=== PATIENT | female | born 1950 | race Caucasian/White ===

== ENCOUNTER 2018-12-16 12:58 | Outpatient (CLI) | payer MEDICARE, BC ==
--- NOTE | 2018-12-16 15:43 | RAD ---
RIGHT HIP 2 VIEWS: Date: 12/16/18 HISTORY: Right hip pain. FINDINGS/IMPRESSION: Degenerative changes are present. No fracture, dislocation, or bony destruction is identified. POS: VARUN
--- NOTE | 2018-12-16 15:48 | CT ---
LOW DOSE CT SCAN CHEST FOR LUNG CANCER SCREENING: Date: 12/16/18 HISTORY: 50 year history of smoking cigarettes. Patient quit 2 months ago. FINDINGS: No noncalcified parenchymal nodules are seen. There is a small calcified granuloma in the left lower lobe. No pleural or pericardial effusions are seen. Vascular calcifications are noted without evidenc e of aneurysmal dilatation of the thoracic aorta. There are degenerative changes in the spine. IMPRESSION: Lung-RADS Category 1 (Negative, less than 1% chance of malignancy). RECOMMENDATION: Continue annual screening with LDCT. POS: VARUN
== END 2018-12-16 12:59 | disposition home or self-care (01) ==
LOC: CT 12:58
PROVIDERS: ATTEND Internal Medicine
DX: M25.551 Pain in right hip (principal); M16.11 Unilateral primary osteoarthritis, right hip; Z87.891 Personal history of nicotine dependence
CPT/HCPCS: 73502; G0297

== ENCOUNTER 2019-08-28 13:20 | Outpatient (CLI) | payer MEDICARE, BC ==
--- NOTE | 2019-08-28 13:56 | MMO ---
Bilateral MAMMO Bilat Screen [facility]. CLINICAL HISTORY: Patient is 68 years old and is seen for screening. The patient has no family history of breast cancer. The patient has no personal history of cancer. VIEWS: The views performed were: bilateral craniocaudal with tomosynthesis and bilateral mediolateral oblique with tomosynthesis. FILMS COMPARED: The present examination has been compared to prior imaging studies performed at [facility] on 11/23/2009, 11/24/2010, 11/13/2013 and 11/20/2014. This study has been interpreted with the assistance of computer-aided detection. MAMMOGRAM FINDINGS: There are scattered fibroglandular densities. There are no suspicious masses, suspicious calcifications, or new areas of architectural distortion. IMPRESSION: THERE IS NO MAMMOGRAPHIC EVIDENCE OF MALIGNANCY. A ROUTINE FOLLOW-UP MAMMOGRAM IN 1 YEAR IS RECOMMENDED. THE RESULTS OF THIS EXAM WERE SENT TO THE PATIENT. ACR BI-RADS Category 1 - Negative MAMMOGRAPHY NOTE: 1. A negative mammogram report should not delay a biopsy if a dominant of clinically suspicious mass is present. 2. Approximately 10% to 15% of breast cancers are not detected by mammography. 3. Adenosis and dense breasts may obscure an underlying neoplasm. Reported by: RUSTY SOTELO MD Electonically Signed: [id number]
--- NOTE | 2019-08-28 14:38 | BD ---
BONE DENSITOMETRY USING DEXA: HISTORY: Postmenopausal screening for osteoporosis, bone density and structure. FINDINGS: Lumbar Spine: BMD (g/cm2) L1 0.799 T-Score: -7.7 Z-Score: 0.1 L2 0.870 T-Score: -1.4 Z-Score: 0.6 L3 0.882 T-Score: -1.8 Z-Score: 0.3 L4 0.947 T-Score: -1.0 Z-Score: 1.2 L1-L4 0.877 T-Score: -1.5 Z-Score: 0.6 Femoral Neck: 0.646 T-Score: -1.8 Z-Score: 0.0 Total Femur: 0.825 T-Score: -1.0 Z-Score: 0.5 There has been interval reduction of 14.1% in the BMD of the lumbar spine and an improvement of 1.4% in the BMD of the proximal femur since 11/23/1997. The 10-year fracture risk for a major osteoporotic fracture is 12% and for a hip fracture is 3.2%. Impression: Osteopenia. POS: VARUN
== END 2019-08-28 13:21 | disposition home or self-care (01) ==
LOC: BICMAMMO 13:20
PROVIDERS: ATTEND Internal Medicine
DX: Z12.31 Encounter for screening mammogram for malignant neoplasm of breast (principal); M85.89 Other specified disorders of bone density and structure, multiple sites
CPT/HCPCS: 77063; 77067; 77080

== ENCOUNTER 2022-01-10 14:17 | Inpatient (IN) | payer OTHER, MEDICARE ==
[2022-01-10] MEDS ORDERED: Fentanyl 100 MCG/2 ML VIAL ONE (14:22)
[2022-01-10] MEDS ORDERED: Ondansetron PF 4 MG/2 ML Vial ONE ×2 (14:40→16:05)
[2022-01-10 14:48] LABS: #Basophils 0.1 thou/uL (0.0-0.2); #Eosinphils 0.3 thou/uL (0.0-0.7); #Lymphocytes 1.9 thou/uL (1.20-3.40); #Monocytes 0.7 thou/uL (0.11-0.59); #Neutrophils 8.1 thou/uL (1.40-6.50); %Basophils 0.6 % (0.0-1.0); %Eosinophils 2.6 % (0.0-10.0); %Lymphocytes 17.4 % (21.0-51.0); %Monocytes 6.6 % (0.0-10.0); %Neutrophils 72.7 % (42.0-75.0); Hemoglobin 14.3 g/dL (12.0-16.0); Mean Corpuscular HGB CONC 32.3 g/dL (32.0-36.0); Mean Corpuscular Hemoglobin 29.1 pg (27.0-31.0); Mean Corpuscular Volume 90.1 fL (78.0-98.0); Mean Platelet Volume 7.7 fL (7.4-10.4); Platelet Count 455 thou/uL (130-400); RBC Distribution Width 13.3 % (11.5-14.5); Red Blood Cell (RBC) Count 4.93 mill/uL (4.20-5.40); White Blood Cell (WBC) Count 11.1 thou/uL (4.8-10.8)
[2022-01-10 15:03] LABS: ALT (SGPT) 18 U/L (8-55); AST (SGOT) 23 U/L (5-34); Albumin 4.4 g/dL (3.4-4.8); Alkaline Phosphatase 114 U/L (40-110); Anion Gap 17 mmol/L (10-20); BUN (Urea Nitrogen) 20 mg/dL (9.8-20.1); Bilirubin, Total 0.3 mg/dL (0.2-1.2); Calc. Creatinine Clearance 0 mL/min (70-130); Calcium 9.2 mg/dL (7.8-10.44); Carbon Dioxide 22 mmol/L (23-31); Chloride 106 mmol/L (98-107); Globulin 2.7 g/dL (2.4-3.5); Glucose 151 mg/dL (83-110); Lipase 30 U/L (8-78); Potassium 4.6 mmol/L (3.5-5.1); Protein, Total 7.1 g/dL (5.8-8.1); Sodium 140 mmol/L (136-145)
[2022-01-10] MEDS ORDERED: hydrALAZINE 20 MG/ML VIAL SLOW IVP PRN (15:54)
[2022-01-10] MEDS ORDERED: Acetaminophen 325 MG TAB PO PRN (15:54)
[2022-01-10] MEDS ORDERED: Morphine 2 MG/ML VIAL SLOW IVP PRN (15:54)
[2022-01-10] MEDS ORDERED: Promethazine HCl 25 MG/ML VIAL IM PRN (15:54)
[2022-01-10] MEDS ORDERED: Lorazepam 2 MG/ML VIAL SLOW IVP PRN (15:54)
[2022-01-10] MEDS ORDERED: Ondansetron PF 4 MG/2 ML Vial IVP PRN (15:54)
[2022-01-10] MEDS ORDERED: Morphine 4 MG/ML VIAL ONE (15:56)
[2022-01-10] MEDS ORDERED: traMADol HCl 50 MG TAB PO PRN (15:57)
[2022-01-10] MEDS ORDERED: Rib Fracture Protocol IV SCH (16:00)
[2022-01-10] MEDS ORDERED: Ibuprofen 600 MG TAB PO SCH ×2 (16:00→18:00)
[2022-01-10] MEDS ORDERED: Melatonin 3 MG TAB PO PRN (16:00)
[2022-01-10] MEDS ORDERED: Promethazine HCl 25 MG/ML VIAL ONE (16:24)
[2022-01-10] MEDS ORDERED: Albuterol 200 PUFF (6.7GM INHALER) INH PRN (16:45)
[2022-01-10 17:34] VITALS: BMI 26.1
[2022-01-10] MEDS ORDERED: Morphine 4 MG/ML VIAL SLOW IVP PRN (18:02)
[2022-01-10] MEDS ORDERED: Loratadine 10 MG TAB PO PRN (18:03)
[2022-01-10] MEDS: Ketorolac Tromethamine 30 MG/ML VIAL IVP SCH (18:27)
[2022-01-10] MEDS: traMADol HCl 50 MG TAB PO SCH (18:28)
[2022-01-10] MEDS: Sodium Chloride 0.9% 1,000 ML IV SCH (18:29)
[2022-01-10] MEDS: Acetaminophen 500 MG TAB PO SCH (18:29)
[2022-01-10] MEDS: Mometasone 200 MCG/Formoterol 5 MCG 120 PUFF INHALER INH SCH (20:07)
[2022-01-10] MEDS: Senokot S 8.6-50 MG TAB PO SCH (20:30)
[2022-01-10] MEDS: Rosuvastatin 10 MG TAB PO SCH (20:30)
[2022-01-10] MEDS: Pregabalin 25 MG CAP PO SCH (20:31)
[2022-01-10] MEDS: Cyclobenzaprine 10 MG TAB PO PRN (20:31)
[2022-01-10] MEDS: FLUoxetine HCl 20 MG CAP PO SCH (20:32)
[2022-01-10] MEDS ORDERED: Famotidine/PF 20 mg/2ml Vial SLOW IVP SCH (21:00)
[2022-01-11] MEDS: traMADol HCl 50 MG TAB PO SCH ×4 (00:55→17:05)
[2022-01-11] MEDS: Acetaminophen 500 MG TAB PO SCH ×4 (00:55→17:05)
[2022-01-11] MEDS: Ketorolac Tromethamine 30 MG/ML VIAL IVP SCH ×2 (00:55→05:22)
[2022-01-11] MEDS: Levothyroxine Sodium 100 MCG TAB PO SCH (05:20)
[2022-01-11 06:26] LABS: #Lymphocytes 0.7 thou/uL (1.20-3.40); #Monocytes 0.6 thou/uL (0.11-0.59); #Neutrophils 4.8 thou/uL (1.40-6.50); %Basophils 0.4 % (0.0-1.0); %Eosinophils 0.7 % (0.0-10.0); %Lymphocytes 11.4 % (21.0-51.0); %Monocytes 9.8 % (0.0-10.0); %Neutrophils 77.8 % (42.0-75.0); Hemoglobin 12.2 g/dL (12.0-16.0); Mean Corpuscular HGB CONC 31.6 g/dL (32.0-36.0); Mean Corpuscular Hemoglobin 29.1 pg (27.0-31.0); Mean Corpuscular Volume 92.1 fL (78.0-98.0); Mean Platelet Volume 7.4 fL (7.4-10.4); Platelet Count 290 thou/uL (130-400); RBC Distribution Width 13.3 % (11.5-14.5); Red Blood Cell (RBC) Count 4.18 mill/uL (4.20-5.40); White Blood Cell (WBC) Count 6.2 thou/uL (4.8-10.8)
[2022-01-11 06:27] LABS: Anion Gap 14 mmol/L (10-20); BUN (Urea Nitrogen) 30 mg/dL (9.8-20.1); Calc. Creatinine Clearance 47 mL/min (70-130); Calcium 8.5 mg/dL (7.8-10.44); Carbon Dioxide 22 mmol/L (23-31); Chloride 109 mmol/L (98-107); Glucose 93 mg/dL (83-110); Magnesium 2.2 mg/dL (1.6-2.6); Potassium 4.8 mmol/L (3.5-5.1); Sodium 140 mmol/L (136-145)
[2022-01-11] MEDS: Sodium Chloride 0.9% 1,000 ML IV SCH ×2 (06:27→18:31)
[2022-01-11 06:29] LABS: Phosphorus 5.2 mg/dL (2.3-4.7)
[2022-01-11] MEDS: Mometasone 200 MCG/Formoterol 5 MCG 120 PUFF INHALER INH SCH ×2 (06:30→19:43)
[2022-01-11] MEDS: FLUoxetine HCl 20 MG CAP PO SCH ×2 (08:29→20:55)
[2022-01-11] MEDS: Senokot S 8.6-50 MG TAB PO SCH ×2 (08:29→20:55)
[2022-01-11] MEDS: Pregabalin 25 MG CAP PO SCH ×2 (08:29→20:55)
[2022-01-11] MEDS: Polyethylene Glycol 3350 17 GM Packet PO SCH (08:30)
[2022-01-11] MEDS ORDERED: Amlodipine 5 MG TAB PO SCH (09:15)
[2022-01-11] MEDS ORDERED: Ibuprofen 200 MG TAB PO PRN (11:32)
[2022-01-11] MEDS ORDERED: Famotidine 20 MG TAB PO SCH (11:45)
[2022-01-11] MEDS ORDERED: Sodium Chloride 0.9% 500 ML IV SCH (17:15)
[2022-01-11] MEDS: Amlodipine 5 MG TAB PO SCH (20:54)
[2022-01-11] MEDS: Rosuvastatin 10 MG TAB PO SCH (20:55)
[2022-01-11] MEDS: Losartan 25 MG TAB PO SCH (20:55)
[2022-01-11] MEDS ORDERED: Famotidine/PF 20 mg/2ml Vial SLOW IVP SCH (21:00)
[2022-01-12] MEDS: Acetaminophen 500 MG TAB PO SCH ×5 (00:14→23:53)
[2022-01-12] MEDS: Cyclobenzaprine 10 MG TAB PO PRN ×2 (00:15→20:19)
[2022-01-12] MEDS: traMADol HCl 50 MG TAB PO SCH ×4 (00:21→20:14)
[2022-01-12 06:11] LABS: Anion Gap 10 mmol/L (10-20); BUN (Urea Nitrogen) 21 mg/dL (9.8-20.1); Calc. Creatinine Clearance 72 mL/min (70-130); Calcium 8.2 mg/dL (7.8-10.44); Carbon Dioxide 21 mmol/L (23-31); Chloride 111 mmol/L (98-107); Glucose 106 mg/dL (83-110); Sodium 138 mmol/L (136-145)
[2022-01-12] MEDS: Levothyroxine Sodium 100 MCG TAB PO SCH (06:25)
[2022-01-12] MEDS: Sodium Chloride 0.9% 1,000 ML IV SCH (06:28)
[2022-01-12] MEDS: Mometasone 200 MCG/Formoterol 5 MCG 120 PUFF INHALER INH SCH (07:12)
[2022-01-12] MEDS: Enoxaparin Sodium 30 MG/0.3 ML SYRINGE SC SCH (08:07)
[2022-01-12] MEDS: Senokot S 8.6-50 MG TAB PO SCH ×2 (08:07→20:12)
[2022-01-12] MEDS: Amlodipine 5 MG TAB PO SCH ×2 (08:08→20:12)
[2022-01-12] MEDS: FLUoxetine HCl 20 MG CAP PO SCH ×2 (08:08→20:10)
[2022-01-12] MEDS: Pregabalin 25 MG CAP PO SCH ×2 (08:08→20:11)
[2022-01-12] MEDS: traMADol HCl 50 MG TAB PO PRN ×2 (08:08→15:14)
[2022-01-12] MEDS: Losartan 25 MG TAB PO SCH ×2 (08:09→20:12)
[2022-01-12] MEDS: Polyethylene Glycol 3350 17 GM Packet PO SCH (08:09)
[2022-01-12] MEDS ORDERED: Pregabalin 25 MG CAP PO SCH ×2 (09:54→10:15)
[2022-01-12] MEDS ORDERED: Lidocaine 5% Patch TD SCH (10:15)
[2022-01-12] MEDS ORDERED: Albuterol 200 PUFF (6.7GM INHALER) INH PRN (10:43)
[2022-01-12] MEDS ORDERED: Ketorolac Tromethamine 30 MG/ML VIAL IVP SCH (10:45)
[2022-01-12] MEDS ORDERED: traMADol HCl 50 MG TAB PO SCH (12:00)
[2022-01-12] MEDS ORDERED: Ibuprofen 200 MG TAB PO SCH (12:00)
[2022-01-12] MEDS: Ketorolac Tromethamine 30 MG/ML VIAL IVP SCH ×2 (17:57→23:52)
[2022-01-12] MEDS ORDERED: Non-Formulary Item 1 EACH (Fluticasone/Salmeterol [Advair Diskus 250/50] 1 PUFF) PO SCH (18:00)
[2022-01-12] MEDS ORDERED: Mometasone 200 MCG/Formoterol 5 MCG 120 PUFF INHALER INH SCH (18:30)
[2022-01-12] MEDS: Arformoterol 15 MCG/2 ML NEB NEB SCH (19:27)
[2022-01-12] MEDS: Budesonide 0.5 MG/2 ML NEB NEB SCH (19:28)
[2022-01-12] MEDS: Rosuvastatin 10 MG TAB PO SCH (20:10)
[2022-01-12] MEDS ORDERED: Transdermal Patch Removal TOP SCH (21:00)
[2022-01-12] MEDS ORDERED: Non-Formulary Item 1 EACH (Fluticasone/Salmeterol [Advair Diskus 250/50] 1 EACH Blst.W.De PO SCH (21:00)
[2022-01-13] MEDS: traMADol HCl 50 MG TAB PO SCH ×3 (02:26→15:53)
[2022-01-13] MEDS: Acetaminophen 500 MG TAB PO SCH ×2 (05:54→11:49)
[2022-01-13] MEDS: Ketorolac Tromethamine 30 MG/ML VIAL IVP SCH (05:54)
[2022-01-13] MEDS: Levothyroxine Sodium 100 MCG TAB PO SCH (05:55)
[2022-01-13] MEDS ORDERED: Magnesium Citrate 300 ML BOT PO SCH (06:00)
[2022-01-13] MEDS: Arformoterol 15 MCG/2 ML NEB NEB SCH (06:39)
[2022-01-13] MEDS: Budesonide 0.5 MG/2 ML NEB NEB SCH (06:39)
[2022-01-13] MEDS: Losartan 25 MG TAB PO SCH (09:00)
[2022-01-13] MEDS ORDERED: Enoxaparin Sodium 40 MG/0.4 ML SYRINGE SC SCH (09:00)
[2022-01-13] MEDS ORDERED: Lidocaine 5% Patch TD SCH (09:00)
[2022-01-13] MEDS: Amlodipine 5 MG TAB PO SCH (09:33)
[2022-01-13] MEDS: Senokot S 8.6-50 MG TAB PO SCH (09:33)
[2022-01-13] MEDS: traMADol HCl 50 MG TAB PO PRN ×2 (09:34→12:45)
[2022-01-13] MEDS: FLUoxetine HCl 20 MG CAP PO SCH (09:35)
[2022-01-13] MEDS: Pregabalin 25 MG CAP PO SCH (09:35)
[2022-01-13] MEDS: Enoxaparin Sodium 30 MG/0.3 ML SYRINGE SC SCH (09:37)
[2022-01-13] MEDS: Polyethylene Glycol 3350 17 GM Packet PO SCH (09:39)
[2022-01-13] MEDS ORDERED: Aspirin 81 mg Enteric Coated Tablet PO SCH (10:15)
[2022-01-13] MEDS: Cyclobenzaprine 10 MG TAB PO PRN (11:49)
[2022-01-13] MEDS ORDERED: Ibuprofen 200 MG TAB PO SCH (14:00)
[2022-01-13 15:30] LABS: SARS-CoV-2 PCR by NAA Not Detected (NotDetected)
[2022-01-13 15:48] VITALS: BP 115/69; TEMP 98.1
[2022-01-14] MEDS ORDERED: Enoxaparin Sodium 40 MG/0.4 ML SYRINGE SC SCH (09:00)
== END 2022-01-13 16:43 | DRG 964 ==
LOC: ERS 14:17 → SURG A 15:51
PROVIDERS: ADMIT Surgery; ATTEND Surgery
DX: S27.321A Contusion of lung, unilateral, initial encounter (principal); S22.42XA Multiple fractures of ribs, left side, initial encounter for closed fracture; S36.029A Unspecified contusion of spleen, initial encounter; N17.9 Acute kidney failure, unspecified; Z20.822 Contact with and (suspected) exposure to COVID-19; E78.5 Hyperlipidemia, unspecified; J44.9 Chronic obstructive pulmonary disease, unspecified; I10 Essential (primary) hypertension; E03.9 Hypothyroidism, unspecified; I95.9 Hypotension, unspecified; V43.52XA Car driver injured in collision with other type car in traffic accident, initial encounter; Y92.410 Unspecified street and highway as the place of occurrence of the external cause; Z95.5 Presence of coronary angioplasty implant and graft; Z79.899 Other long term (current) drug therapy; Z79.890 Hormone replacement therapy; Z79.82 Long term (current) use of aspirin; Z79.51 Long term (current) use of inhaled steroids; I25.2 Old myocardial infarction; Z88.1 Allergy status to other antibiotic agents; Z88.0 Allergy status to penicillin
CPT/HCPCS: 36415; 70450; 71045; 71260; 72125; 74177; 80048; 80053; 83605; 83690; 83735; 84100; 85025; 86850; 86900; 86901; 93005; 94640; 94664; 96374; 96375; G0390; J1650; J1885; J2270; J2405; J2550; J3010; J7050; J7620; J7626; S0028; U0003; U0005

== ENCOUNTER 2022-06-28 12:38 | Outpatient (CLI) | payer MEDICARE, BC | END 2022-06-28 12:39 | disposition home or self-care (01) | LOC: CT 12:38 | PROVIDERS: ATTEND Internal Medicine Critical Care Medicine | DX: R91.8 Other nonspecific abnormal finding of lung field (principal); R59.0 Localized enlarged lymph nodes | CPT/HCPCS: 71250 ==

== ENCOUNTER 2022-08-03 11:46 | Outpatient (CLI) | payer MEDICARE ==
[~2022-08-03 11:46] MED LIST: Iopamidol 370 76% 100 ML VIAL ONE
== END 2022-08-03 11:47 | disposition home or self-care (01) ==
LOC: CT 11:46
PROVIDERS: ATTEND Student in an Organized Health Care Education/Training Program
DX: J38.00 Paralysis of vocal cords and larynx, unspecified (principal); C78.02 Secondary malignant neoplasm of left lung; R59.0 Localized enlarged lymph nodes
CPT/HCPCS: 70470; 70491; 71260; 82565; Q9967

== ENCOUNTER 2022-08-11 08:09 | Inpatient (IN) | payer MEDICARE ==
[2022-08-11] MEDS ORDERED: Clindamycin/D5W 900 mg/50 ml Premix Bag ONE (08:52)
[2022-08-11] MEDS ORDERED: Dexmedetomidine 200 MCG/2 ML VIAL ONE (09:19)
[2022-08-11] MEDS ORDERED: Lidocaine 4% Topical Sol 50 ML BOT ONE (09:19)
[2022-08-11] MEDS ORDERED: Lidocaine Viscous Sol 2% 15 ml UD Cup ONE (09:20)
[2022-08-11] MEDS ORDERED: Scopolamine 1.5 mg/72 hour Patch ONE (09:26)
[2022-08-11 09:35] LABS: #Eosinphils 0.2 thou/uL (0.0-0.7); #Lymphocytes 0.6 thou/uL (1.20-3.40); #Monocytes 0.4 thou/uL (0.11-0.59); #Neutrophils 3.4 thou/uL (1.40-6.50); %Basophils 0.3 % (0.0-1.0); %Eosinophils 4.3 % (0.0-10.0); %Lymphocytes 12.3 % (21.0-51.0); %Monocytes 7.7 % (0.0-10.0); %Neutrophils 75.3 % (42.0-75.0); Hemoglobin 12.4 g/dL (12.0-16.0); Mean Corpuscular HGB CONC 30.7 g/dL (32.0-36.0); Mean Corpuscular Hemoglobin 26.3 pg (27.0-31.0); Mean Corpuscular Volume 85.6 fL (78.0-98.0); Mean Platelet Volume 8.3 fL (7.4-10.4); Platelet Count 280 thou/uL (130-400); RBC Distribution Width 14.4 % (11.5-14.5); Red Blood Cell (RBC) Count 4.71 mill/uL (4.20-5.40); White Blood Cell (WBC) Count 4.5 thou/uL (4.8-10.8)
[2022-08-11 09:36] LABS: Anion Gap 16 mmol/L (10-20); BUN (Urea Nitrogen) 19 mg/dL (9.8-20.1); Calc. Creatinine Clearance 0 mL/min (70-130); Calcium 9.5 mg/dL (7.8-10.44); Carbon Dioxide 25 mmol/L (23-31); Chloride 105 mmol/L (98-107); Estimated GFR 66; Glucose 95 mg/dL (83-110); Potassium 3.1 mmol/L (3.5-5.1); Sodium 143 mmol/L (136-145)
[2022-08-11] MEDS ORDERED: Succinylcholine 200 MG/10 ml SYRINGE FS ONE (09:59)
[2022-08-11] MEDS ORDERED: Ondansetron PF 4 MG/2 ML Vial ONE (09:59)
[2022-08-11] MEDS ORDERED: PHENYLEPHRINE-NS 100 MCG/ML 10 ML SYRINGE ONE (09:59)
[2022-08-11] MEDS ORDERED: PROPOFOL 200 MG/20 ML VIAL ONE (09:59)
[2022-08-11] MEDS ORDERED: Glycopyrrolate 0.2 MG/ML 5 ML SYRINGE ONE (09:59)
[2022-08-11] MEDS ORDERED: EPINEPHrine 1 MG/ML AMP ONE (10:42)
[2022-08-11] MEDS ORDERED: Bupivacaine PF 0.5% 30 ML VIAL ONE (10:42)
[2022-08-11] MEDS ORDERED: fentaNYL Citrate/PF 100 MCG/2 ML SYRINGE ONE (10:47)
[2022-08-11] MEDS ORDERED: Fentanyl 100 MCG/2 ML VIAL ONE (13:12)
[2022-08-11 13:52] LABS: Actual Bicarbonate (HCO3a) 25.3 mEq/L (22-28); Base Excess (BEa) -0.5 mEq/L (-2.0 to +3.0); CO2 Tension 46.4 mmHg (35.0-45.0); Calcium, Ionized (arterial) 1.14 mmol/L (1.12-1.30); Carboxyhemoglobin (COHb) 0.5 gm% (0.0-3.0); Hemoglobin (Hb) 12.2 g/dL (12.0-16.0); O2 Tension (PaO2), arterial 206.9 mmHg (> 70.0); Potassium - ABG Lab 3.34 mmol/L (3.70-5.30); pH, Arterial 7.36 (7.35-7.45)
[2022-08-11 13:54] LABS: Puncture Site RRA
[2022-08-11] MEDS ORDERED: Ondansetron PF 4 MG/2 ML Vial IVP PRN (14:20)
[2022-08-11] MEDS ORDERED: Acetaminophen 325 MG TAB PO PRN (14:20)
[2022-08-11] MEDS ORDERED: Guaifenesin DM 100-10/5 ML UDCUP PO PRN (14:20)
[2022-08-11] MEDS ORDERED: Bisacodyl 5 MG TAB PO PRN (14:20)
[2022-08-11] MEDS ORDERED: Potassium Chloride 20 MEQ TAB PO SCH (16:30)
[2022-08-11] MEDS: HYDROcodone/Acetaminophen 5/325 mg Tablet PO PRN ×2 (16:54→20:47)
[2022-08-11] MEDS: Potassium Bicarbonate/Cit Ac 20 MEQ TAB PO SCH ×2 (17:09→20:53)
[2022-08-11 17:57] LABS: Magnesium 1.8 mg/dL (1.6-2.6)
[2022-08-11] MEDS ORDERED: hydrALAZINE 25 MG TAB PO PRN (18:49)
[2022-08-11] MEDS: Famotidine/PF 20 mg/2ml Vial SLOW IVP SCH (20:47)
[2022-08-11 23:12] VITALS: BMI 25.5
[2022-08-12 03:57] LABS: #Eosinphils 0.3 thou/uL (0.0-0.7); #Lymphocytes 0.8 thou/uL (1.20-3.40); #Monocytes 0.5 thou/uL (0.11-0.59); #Neutrophils 3.3 thou/uL (1.40-6.50); %Basophils 0.2 % (0.0-1.0); %Eosinophils 5.5 % (0.0-10.0); %Lymphocytes 16.9 % (21.0-51.0); %Monocytes 10.1 % (0.0-10.0); %Neutrophils 67.4 % (42.0-75.0); Hemoglobin 11.6 g/dL (12.0-16.0); Mean Corpuscular HGB CONC 31.6 g/dL (32.0-36.0); Mean Corpuscular Hemoglobin 27.4 pg (27.0-31.0); Mean Corpuscular Volume 86.9 fL (78.0-98.0); Mean Platelet Volume 8.1 fL (7.4-10.4); Platelet Count 281 thou/uL (130-400); RBC Distribution Width 14.7 % (11.5-14.5); Red Blood Cell (RBC) Count 4.22 mill/uL (4.20-5.40); White Blood Cell (WBC) Count 4.8 thou/uL (4.8-10.8)
[2022-08-12 04:12] LABS: Anion Gap 14 mmol/L (10-20); BUN (Urea Nitrogen) 19 mg/dL (9.8-20.1); Calc. Creatinine Clearance 56 mL/min (70-130); Calcium 9.4 mg/dL (7.8-10.44); Carbon Dioxide 30 mmol/L (23-31); Chloride 102 mmol/L (98-107); Estimated GFR 62; Glucose 85 mg/dL (83-110); Magnesium 1.9 mg/dL (1.6-2.6); Potassium 4.1 mmol/L (3.5-5.1); Sodium 142 mmol/L (136-145)
[2022-08-12] MEDS: HYDROcodone/Acetaminophen 5/325 mg Tablet PO PRN ×2 (05:12→09:03)
[2022-08-12] MEDS ORDERED: Budesonide 0.5 MG/2 ML NEB NEB SCH (06:30)
[2022-08-12] MEDS ORDERED: Enoxaparin Sodium 40 MG/0.4 ML SYRINGE SC SCH (09:00)
[2022-08-12] MEDS: Famotidine/PF 20 mg/2ml Vial SLOW IVP SCH (09:04)
[2022-08-12 09:33] LABS: Actual Bicarbonate (HCO3v) 30 mEq/L (22-28); Base Excess 3.5 mEq/L (-2.0 to +3.0); Calcium, Ionized (venous) 1.11 mmol/L (1.16-1.32); Chloride (VBG) 100 mmol/L (98-106); Hemoglobin (Hb) 13.5 g/dL (11.7-16.1); Potassium (VBG) 3.92 mmol/L (3.70-5.30); Sodium 142.5 mmol/L (133-146); pH (venous) 7.37 (7.32-7.43)
[2022-08-12] MEDS ORDERED: Loratadine 10 MG TAB PO PRN (10:20)
[2022-08-12 11:00] VITALS: BP 137/67; TEMP 97.6
[2022-08-12] MEDS ORDERED: Albuterol Sulfate 2.5 mg/0.5 ml Neb NEB PRN (11:12)
[2022-08-12] MEDS ORDERED: FLU VACC QS2022-23(65YR UP)/PF 240 MCG/0.7 ML SYRINGE IM ONE (13:30)
[2022-08-12] MEDS ORDERED: Arformoterol 15 MCG/2 ML NEB NEB SCH (18:30)
[2022-08-12] MEDS ORDERED: Mometasone 200 MCG/Formoterol 5 MCG 120 PUFF INHALER INH SCH (18:30)
[2022-08-12] MEDS ORDERED: Famotidine 20 MG TAB PO SCH (21:00)
[2022-08-12] MEDS ORDERED: Rosuvastatin 10 MG TAB PO SCH (21:00)
[2022-08-12] MEDS ORDERED: FLUoxetine HCl 20 MG CAP PO SCH (21:00)
[2022-08-12] MEDS ORDERED: Losartan 25 MG TAB PO SCH (21:00)
[2022-08-13] MEDS ORDERED: Amlodipine 5 MG TAB PO SCH (09:00)
[2022-08-13] MEDS ORDERED: Levothyroxine Sodium 100 MCG TAB PO SCH (09:00)
== END 2022-08-12 14:24 | disposition home or self-care (01) | DRG 166 ==
LOC: SDC 08:09 → CCU 14:23 → T4-B 08-12 10:57
PROVIDERS: ADMIT Internal Medicine; ATTEND Thoracic Surgery (Cardiothoracic Vascular Surgery)
PROC: 0WBC0ZX Excision of Mediastinum, Open Approach, Diagnostic (ICD-10-PCS; principal; 2022-08-11)
PROC: 5A09357 Assistance with Respiratory Ventilation, Less than 24 Consecutive Hours, Continuous Positive Airway Pressure (ICD-10-PCS; 2022-08-11)
DX: J96.01 Acute respiratory failure with hypoxia (principal); G93.41 Metabolic encephalopathy; J98.11 Atelectasis; C34.12 Malignant neoplasm of upper lobe, left bronchus or lung; J96.02 Acute respiratory failure with hypercapnia; I25.10 Atherosclerotic heart disease of native coronary artery without angina pectoris; I10 Essential (primary) hypertension; J44.9 Chronic obstructive pulmonary disease, unspecified; E78.5 Hyperlipidemia, unspecified; E03.9 Hypothyroidism, unspecified; E87.6 Hypokalemia; G52.2 Disorders of vagus nerve; Z90.710 Acquired absence of both cervix and uterus; Z98.890 Other specified postprocedural states; Z82.49 Family history of ischemic heart disease and other diseases of the circulatory system; Z79.899 Other long term (current) drug therapy; Z79.890 Hormone replacement therapy; Z79.51 Long term (current) use of inhaled steroids; Z87.891 Personal history of nicotine dependence; Z79.82 Long term (current) use of aspirin; Z82.3 Family history of stroke; Z88.0 Allergy status to penicillin; Z88.1 Allergy status to other antibiotic agents
CPT/HCPCS: 36415; 36600; 71045; 71046; 80048; 82805; 83735; 84145; 85025; 88305; 88331; 88341; 88342; 88360; 90471; 90662; 94640; 94660; C1713; G0008; J0171; J1650; J2405; J2704; J3010; J3490; J7620; S0020; S0028

== ENCOUNTER 2024-09-29 13:34 | Outpatient (CLI) | payer MEDICARE | END 2024-09-29 13:35 | disposition home or self-care (01) | LOC: CT 13:34 | DX: C34.12 Malignant neoplasm of upper lobe, left bronchus or lung (principal); R91.8 Other nonspecific abnormal finding of lung field | CPT/HCPCS: 71260; 82565 ==